=== PATIENT | female | born 1965 | race Caucasian/White ===

== ENCOUNTER 2022-08-15 12:30 | Inpatient (IN) | payer MEDICARE ==
[~2022-08-15] VITALS: Ht 157.5 cm; Wt 97.5 kg
[~2022-08-15 12:30] MED LIST: ACET650S27 RC; ARIP10TA56 MT; ATOR40TA70 MT; FLUO20TA29 PO; FLUO60TA PO; FOLI-43 PO; LACO100T4; LIRA0.6P SQ; METH2.5T PO; ZOLP10TA2 PO; ZOLP5TAB8 PO
[2022-08-16 00:30] VITALS: BP 133/68
[2022-08-16] MEDS ORDERED: DEXTROSE 50% WATER 50ML SYRINGE IV PRN ×2 (01:30)
[2022-08-16] MEDS ORDERED: DIPHENHYDRAMINE 50MG/ML VIAL IV PRN ×2 (01:30→06:34)
[2022-08-16] MEDS ORDERED: ZOLPIDEM TARTRATE 5MG TABLET PO PRN (01:30)
[2022-08-16] MEDS ORDERED: LORAZEPAM 2MG/ML CPJ IV PRN (01:30)
[2022-08-16] MEDS ORDERED: NALOXONE HCL 0.4 MG/ML 1ML VIAL IV PRN (01:45)
[2022-08-16] MEDS ORDERED: ACETAMINOPHEN 325MG SUPP PR PRN (01:45)
[2022-08-16] MEDS ORDERED: ONDANSETRON HCL 4MG/2ML INJ IV PRN (01:45)
[2022-08-16] MEDS ORDERED: NALOXONE HCL 0.4MG/ML VIAL IV PRN (01:45)
[2022-08-16] MEDS: MORPHINE SULFATE 4 MG/ML CPJ (NOT FOR IM USE) IV PRN ×4 (02:54→18:42)
[2022-08-16 04:57] LABS: CLARITY URINE TURBID (CLEAR); COLOR URINE YELLOW (YELLOW); KETONES URINE NEGATIVE (NEGATIVE); LEUKOCYTE ESTERASE URINE 1+ (NEGATIVE); NITRITE URINE NEGATIVE (NEGATIVE); OCCULT BLOOD URINE NEGATIVE (NEGATIVE); PROTEIN URINE NEGATIVE (NEGATIVE); SPECIFIC GRAVITY URINE 1.017 (1.005-1.030)
[2022-08-16] MEDS: BLOOD SUGAR DIAGNOSTIC STRIP TEST SCH ×3 (05:48→21:00)
[2022-08-16] MEDS: SODIUM CHLORIDE 0.9% INJ 3ML FLUSH IVF SCH ×3 (05:52→21:37)
[2022-08-16] MEDS ORDERED: CLONIDINE 0.1MG TABLET PO PRN (06:15)
[2022-08-16] MEDS ORDERED: MAGNESIUM/ALUMINUM HYDROXIDE/SIMETHICONE 30ML UDC PO PRN (06:15)
[2022-08-16] MEDS ORDERED: HYDROCODONE/ACETAMINOPHEN 10/325MG TABLET PO PRN (06:15)
[2022-08-16] MEDS ORDERED: BLOOD SUGAR DIAGNOSTIC STRIP TEST SCH (06:30)
[2022-08-16 06:53] LABS: BASOPHILS % 0.2 % (0.0-2.0); EOSINOPHILS % 2.6 % (0.0-5.0); HEMATOCRIT. 22.6 % (36.0-48.0); HEMOGLOBIN. 7.7 g/dL (12.0-16.0); LYMPHOCYTES % 21.7 % (20.0-50.0); MEAN CORPUSCULAR VOLUME 94.1 fL (81.0-99.0); MEAN PLATELET VOLUME 6.9 fl (7.4-10.4); MONOCYTES % 13.1 % (2.0-8.0); NEUTROPHILS % 62.4 % (40.0-76.0); PLATELET 234 x1000/uL (130-400); RED CELL DISTRIBUTION WIDTH 14.2 % (11.6-14.6)
[2022-08-16 07:17] LABS: CHLORIDE 103 mEq/L (98-107)
[2022-08-16 08:00] VITALS: BP 127/66
[2022-08-16] MEDS: INSULIN LISPRO 100 UNITS/ML SUBCUT SCH ×3 (08:10→21:00)
[2022-08-16] MEDS ORDERED: ACETAMINOPHEN 325MG TABLET PO PRN ×2 (08:30)
[2022-08-16] MEDS ORDERED: ENOXAPARIN 30MG/0.3ML SYR SUBCUT SCH (09:00)
[2022-08-16] MEDS ORDERED: DOCUSATE SODIUM 100MG CAPSULE PO SCH (09:00)
[2022-08-16] MEDS ORDERED: ARIPIPRAZOLE 5MG TABLET PO SCH (09:00)
[2022-08-16] MEDS: ARIPIPRAZOLE 5MG TABLET PO SCH (10:45)
[2022-08-16] MEDS: FLUOXETINE HCL 20MG CAPSULE PO SCH (10:52)
[2022-08-16 12:00] VITALS: BP 125/67
[2022-08-16 16:00] VITALS: BP 122/67
[2022-08-16] MEDS: DOCUSATE SODIUM 100MG CAPSULE PO SCH ×2 (17:00→18:28)
[2022-08-16] MEDS: POLYETHYLENE GLYCOL 3350 (17GM) 1 DOSE PACK PO SCH (18:28)
[2022-08-16 18:46] LABS: TOTAL IRON BINDING CAPACITY 220 ug/dL (250-450)
[2022-08-16 20:15] VITALS: BP 129/63
[2022-08-16] MEDS: ATORVASTATIN CALCIUM 40MG TABLET PO SCH (21:37)
[2022-08-16] MEDS: PANTOPRAZOLE 40MG DR TABLET PO SCH (21:37)
[2022-08-16] MEDS: ZOLPIDEM TARTRATE 5MG TABLET PO PRN (22:22)
[2022-08-16] MEDS: HYDROCODONE/ACETAMINOPHEN 10/325MG TABLET PO PRN (22:38)
[2022-08-17] MEDS: MORPHINE SULFATE 4 MG/ML CPJ (NOT FOR IM USE) IV PRN ×2 (00:18→05:55)
[2022-08-17] MEDS: SODIUM CHLORIDE 0.9% INJ 3ML FLUSH IVF SCH ×3 (05:55→21:33)
[2022-08-17] MEDS: BLOOD SUGAR DIAGNOSTIC STRIP TEST SCH ×4 (05:56→20:51)
[2022-08-17 06:42] LABS: CHLORIDE 106 mEq/L (98-107)
[2022-08-17 06:46] LABS: BASOPHILS % 0.3 % (0.0-2.0); EOSINOPHILS % 2.6 % (0.0-5.0); HEMATOCRIT. 24.4 % (36.0-48.0); HEMOGLOBIN. 8.2 g/dL (12.0-16.0); MEAN CORPUSCULAR HEMOGLOBIN 31.8 pg (28.0-32.0); MEAN CORPUSCULAR VOLUME 94.2 fL (81.0-99.0); MEAN PLATELET VOLUME 7.1 fl (7.4-10.4); MONOCYTES % 13.4 % (2.0-8.0); NEUTROPHILS % 57.7 % (40.0-76.0); PLATELET 283 x1000/uL (130-400); RED BLOOD CELL COUNT 2.59 mill/uL (4.2-5.4); RED CELL DISTRIBUTION WIDTH 13.9 % (11.6-14.6)
[2022-08-17 07:00] LABS: TOTAL IRON BINDING CAPACITY 207 ug/dL (250-450)
[2022-08-17 07:31] LABS: FERRITIN 61 ng/mL (10-291)
[2022-08-17 07:43] LABS: VITAMIN B12 SERUM 1587 pg/mL (211-911)
[2022-08-17 08:00] VITALS: BP 114/60
[2022-08-17] MEDS: INSULIN LISPRO 100 UNITS/ML SUBCUT SCH ×4 (09:00→20:51)
[2022-08-17] MEDS: DOCUSATE SODIUM 100MG CAPSULE PO SCH ×3 (09:00→17:27)
[2022-08-17] MEDS: HYDROCODONE/ACETAMINOPHEN 10/325MG TABLET PO PRN (09:35)
[2022-08-17] MEDS: POLYETHYLENE GLYCOL 3350 (17GM) 1 DOSE PACK PO SCH (09:36)
[2022-08-17] MEDS: ARIPIPRAZOLE 5MG TABLET PO SCH (09:36)
[2022-08-17] MEDS: FLUOXETINE HCL 20MG CAPSULE PO SCH (09:36)
[2022-08-17] MEDS: PANTOPRAZOLE 40MG DR TABLET PO SCH ×2 (09:36→20:35)
[2022-08-17] MEDS ORDERED: BISACODYL 10MG SUPP PR PRN (10:45)
[2022-08-17] MEDS: LACTULOSE 20G/30ML UDC PO SCH ×2 (13:23→17:27)
[2022-08-17] MEDS: FERROUS SULFATE 325MG TABLET PO SCH ×2 (13:23→17:00)
[2022-08-17] MEDS: ASCORBIC ACID 500 MG TABLET PO SCH (13:23)
[2022-08-17] MEDS: METHOCARBAMOL 500MG TABLET PO PRN (16:17)
[2022-08-17] MEDS: OXYCODONE HCL 5MG TABLET PO PRN ×2 (16:18→20:35)
[2022-08-17 20:00] VITALS: BP 117/66
[2022-08-17] MEDS: ATORVASTATIN CALCIUM 40MG TABLET PO SCH (20:35)
[2022-08-17] MEDS: LACOSAMIDE 100 MG TABLET PO SCH (20:47)
[2022-08-17] MEDS: ZOLPIDEM TARTRATE 5MG TABLET PO PRN (22:24)
[2022-08-18] MEDS: OXYCODONE HCL 5MG TABLET PO PRN ×4 (01:51→21:15)
[2022-08-18] MEDS: HYDROCODONE/ACETAMINOPHEN 10/325MG TABLET PO PRN (04:40)
[2022-08-18] MEDS: SODIUM CHLORIDE 0.9% INJ 3ML FLUSH IVF SCH ×3 (06:16→22:00)
[2022-08-18] MEDS: BLOOD SUGAR DIAGNOSTIC STRIP TEST SCH ×4 (06:20→21:15)
[2022-08-18] MEDS: INSULIN LISPRO 100 UNITS/ML SUBCUT SCH ×4 (06:21→21:00)
[2022-08-18 08:00] VITALS: BP 130/56
[2022-08-18] MEDS: ASCORBIC ACID 500 MG TABLET PO SCH (08:47)
[2022-08-18] MEDS: DOCUSATE SODIUM 100MG CAPSULE PO SCH ×2 (08:47→17:42)
[2022-08-18] MEDS: FERROUS SULFATE 325MG TABLET PO SCH ×3 (08:47→17:00)
[2022-08-18] MEDS: LACOSAMIDE 100 MG TABLET PO SCH ×2 (08:47→21:13)
[2022-08-18] MEDS: PANTOPRAZOLE 40MG DR TABLET PO SCH (08:47)
[2022-08-18] MEDS ORDERED: NON FORMULARY PATIENT HOME MED PO SCH (09:00)
[2022-08-18] MEDS: POLYETHYLENE GLYCOL 3350 (17GM) 1 DOSE PACK PO SCH (09:00)
[2022-08-18] MEDS: VICTOZA 18MG/3ML SQ SCH (09:34)
[2022-08-18 20:00] VITALS: BP 125/59
[2022-08-18] MEDS: ARIPIPRAZOLE 5MG TABLET PO SCH (21:11)
[2022-08-18] MEDS: ATORVASTATIN CALCIUM 40MG TABLET PO SCH (21:11)
[2022-08-18] MEDS: FAMOTIDINE 20MG TABLET PO SCH (21:12)
[2022-08-18] MEDS: FLUOXETINE HCL 20MG CAPSULE PO SCH (21:13)
[2022-08-19] MEDS: OXYCODONE HCL 5MG TABLET PO PRN ×3 (02:29→19:36)
[2022-08-19] MEDS: BLOOD SUGAR DIAGNOSTIC STRIP TEST SCH ×4 (05:20→21:22)
[2022-08-19] MEDS: INSULIN LISPRO 100 UNITS/ML SUBCUT SCH ×4 (05:20→19:37)
[2022-08-19] MEDS: SODIUM CHLORIDE 0.9% INJ 3ML FLUSH IVF SCH ×3 (06:00→22:00)
[2022-08-19 08:00] VITALS: BP 123/64
[2022-08-19 08:36] LABS: BASOPHILS % 0.6 % (0.0-2.0); EOSINOPHILS % 3.5 % (0.0-5.0); HEMATOCRIT. 23.9 % (36.0-48.0); LYMPHOCYTES % 23.1 % (20.0-50.0); MEAN CORPUSCULAR HEMOGLOBIN 31.5 pg (28.0-32.0); MEAN CORPUSCULAR VOLUME 93.7 fL (81.0-99.0); MEAN PLATELET VOLUME 6.9 fl (7.4-10.4); MONOCYTES % 10.3 % (2.0-8.0); NEUTROPHILS % 62.5 % (40.0-76.0); PLATELET 326 x1000/uL (130-400); RED BLOOD CELL COUNT 2.55 mill/uL (4.2-5.4); RED CELL DISTRIBUTION WIDTH 14.5 % (11.6-14.6)
[2022-08-19] MEDS: LACOSAMIDE 100 MG TABLET PO SCH ×2 (08:58→19:37)
[2022-08-19] MEDS: POLYETHYLENE GLYCOL 3350 (17GM) 1 DOSE PACK PO SCH (08:58)
[2022-08-19] MEDS: FERROUS SULFATE 325MG TABLET PO SCH ×3 (09:00→17:00)
[2022-08-19] MEDS: ASCORBIC ACID 500 MG TABLET PO SCH (09:00)
[2022-08-19] MEDS: FAMOTIDINE 20MG TABLET PO SCH ×2 (09:00→21:16)
[2022-08-19] MEDS: DOCUSATE SODIUM 100MG CAPSULE PO SCH ×2 (09:00→17:34)
[2022-08-19] MEDS: VICTOZA 18MG/3ML SQ SCH (09:06)
[2022-08-19 09:22] LABS: CHLORIDE 103 mEq/L (98-107)
[2022-08-19] MEDS ORDERED: FERROUS SULFATE 325MG TABLET PO SCH (13:00)
[2022-08-19] MEDS: METHOCARBAMOL 500MG TABLET PO PRN (13:30)
[2022-08-19 17:31] LABS: HEPATITIS B SURFACE ANTIGEN NEGATIVE
[2022-08-19] MEDS: ARIPIPRAZOLE 5MG TABLET PO SCH (19:35)
[2022-08-19] MEDS: FLUOXETINE HCL 20MG CAPSULE PO SCH (19:37)
[2022-08-19] MEDS: ATORVASTATIN CALCIUM 40MG TABLET PO SCH (19:37)
[2022-08-19 20:01] VITALS: BP 122/61
[2022-08-19] MEDS: LACTULOSE 20G/30ML UDC PO SCH (21:17)
[2022-08-19] MEDS: ZOLPIDEM TARTRATE 5MG TABLET PO PRN (21:21)
[2022-08-20] MEDS: OXYCODONE HCL 5MG TABLET PO PRN ×4 (00:37→16:42)
[2022-08-20] MEDS: SODIUM CHLORIDE 0.9% INJ 3ML FLUSH IVF SCH ×3 (06:00→21:12)
[2022-08-20] MEDS: BLOOD SUGAR DIAGNOSTIC STRIP TEST SCH ×4 (06:30→21:11)
[2022-08-20] MEDS: INSULIN LISPRO 100 UNITS/ML SUBCUT SCH ×4 (06:46→21:00)
[2022-08-20 08:00] VITALS: BP 126/87
[2022-08-20] MEDS: DOCUSATE SODIUM 100MG CAPSULE PO SCH ×2 (08:50→16:41)
[2022-08-20] MEDS: FAMOTIDINE 20MG TABLET PO SCH ×2 (08:51→21:10)
[2022-08-20] MEDS: POLYETHYLENE GLYCOL 3350 (17GM) 1 DOSE PACK PO SCH (08:51)
[2022-08-20] MEDS: ASCORBIC ACID 500 MG TABLET PO SCH (08:51)
[2022-08-20] MEDS: FERROUS SULFATE 325MG TABLET PO SCH ×3 (08:51→16:41)
[2022-08-20] MEDS: LACOSAMIDE 100 MG TABLET PO SCH ×2 (08:51→21:11)
[2022-08-20] MEDS: VICTOZA 18MG/3ML SQ SCH (08:52)
[2022-08-20 12:00] VITALS: BP 124/68
[2022-08-20 16:00] VITALS: BP 108/55
[2022-08-20] MEDS: METHOCARBAMOL 500MG TABLET PO PRN (16:17)
[2022-08-20 20:00] VITALS: BP 118/67
[2022-08-20] MEDS: ARIPIPRAZOLE 5MG TABLET PO SCH (21:08)
[2022-08-20] MEDS: LACTULOSE 20G/30ML UDC PO SCH (21:09)
[2022-08-20] MEDS: ATORVASTATIN CALCIUM 40MG TABLET PO SCH (21:09)
[2022-08-20] MEDS: FLUOXETINE HCL 20MG CAPSULE PO SCH (21:10)
[2022-08-20] MEDS: ZOLPIDEM TARTRATE 5MG TABLET PO PRN (22:17)
[2022-08-21] MEDS: OXYCODONE HCL 5MG TABLET PO PRN ×3 (00:43→16:27)
[2022-08-21] MEDS: BLOOD SUGAR DIAGNOSTIC STRIP TEST SCH ×4 (05:29→20:49)
[2022-08-21] MEDS: SODIUM CHLORIDE 0.9% INJ 3ML FLUSH IVF SCH ×3 (06:00→21:47)
[2022-08-21 07:00] LABS: BASOPHILS % 0.8 % (0.0-2.0); EOSINOPHILS % 2.8 % (0.0-5.0); HEMATOCRIT. 25.3 % (36.0-48.0); HEMOGLOBIN. 8.4 g/dL (12.0-16.0); LYMPHOCYTES % 19.6 % (20.0-50.0); MEAN CORPUSCULAR HEMOGLOBIN 31.4 pg (28.0-32.0); MEAN CORPUSCULAR VOLUME 94.6 fL (81.0-99.0); MEAN PLATELET VOLUME 7.6 fl (7.4-10.4); MONOCYTES % 8.6 % (2.0-8.0); NEUTROPHILS % 68.2 % (40.0-76.0); PLATELET 324 x1000/uL (130-400); RED BLOOD CELL COUNT 2.68 mill/uL (4.2-5.4); RED CELL DISTRIBUTION WIDTH 15.1 % (11.6-14.6)
[2022-08-21 08:00] VITALS: BP 122/67
[2022-08-21 08:40] LABS: CHLORIDE 99 mEq/L (98-107)
[2022-08-21] MEDS: INSULIN LISPRO 100 UNITS/ML SUBCUT SCH ×4 (09:00→20:50)
[2022-08-21] MEDS: FAMOTIDINE 20MG TABLET PO SCH ×2 (09:38→20:48)
[2022-08-21] MEDS: LACOSAMIDE 100 MG TABLET PO SCH ×2 (09:38→21:00)
[2022-08-21] MEDS: FERROUS SULFATE 325MG TABLET PO SCH ×3 (09:38→17:00)
[2022-08-21] MEDS: DOCUSATE SODIUM 100MG CAPSULE PO SCH ×2 (09:39→17:58)
[2022-08-21] MEDS: ASCORBIC ACID 500 MG TABLET PO SCH (09:39)
[2022-08-21] MEDS: VICTOZA 18MG/3ML SQ SCH (09:40)
[2022-08-21] MEDS: POLYETHYLENE GLYCOL 3350 (17GM) 1 DOSE PACK PO SCH (09:40)
[2022-08-21] MEDS ORDERED: NA PHOS,M-B/NA PHOS,DI-BA ENEMA 118ML PR NR (15:00)
[2022-08-21 20:26] VITALS: BP 127/50
[2022-08-21] MEDS: ATORVASTATIN CALCIUM 40MG TABLET PO SCH (20:48)
[2022-08-21] MEDS: ARIPIPRAZOLE 5MG TABLET PO SCH (20:48)
[2022-08-21] MEDS: FLUOXETINE HCL 20MG CAPSULE PO SCH (20:49)
[2022-08-21] MEDS: HYDROCODONE/ACETAMINOPHEN 10/325MG TABLET PO PRN (20:49)
[2022-08-21] MEDS: LACTULOSE 20G/30ML UDC PO SCH (21:00)
[2022-08-21] MEDS: ZOLPIDEM TARTRATE 5MG TABLET PO PRN (21:48)
[2022-08-22] MEDS: HYDROCODONE/ACETAMINOPHEN 10/325MG TABLET PO PRN ×2 (02:47→02:48)
[2022-08-22] MEDS: OXYCODONE HCL 5MG TABLET PO PRN ×5 (02:54→20:35)
[2022-08-22] MEDS: BLOOD SUGAR DIAGNOSTIC STRIP TEST SCH ×4 (06:30→20:41)
[2022-08-22] MEDS: SODIUM CHLORIDE 0.9% INJ 3ML FLUSH IVF SCH ×3 (06:30→21:30)
[2022-08-22 08:00] VITALS: BP 117/63
[2022-08-22] MEDS: VICTOZA 18MG/3ML SQ SCH (08:21)
[2022-08-22] MEDS: FERROUS SULFATE 325MG TABLET PO SCH ×3 (08:22→16:36)
[2022-08-22] MEDS: POLYETHYLENE GLYCOL 3350 (17GM) 1 DOSE PACK PO SCH (08:22)
[2022-08-22] MEDS: ASCORBIC ACID 500 MG TABLET PO SCH (08:23)
[2022-08-22] MEDS: DOCUSATE SODIUM 100MG CAPSULE PO SCH ×2 (08:23→16:32)
[2022-08-22] MEDS: LACOSAMIDE 100 MG TABLET PO SCH ×2 (08:23→20:36)
[2022-08-22] MEDS: FAMOTIDINE 20MG TABLET PO SCH ×2 (08:23→20:35)
[2022-08-22] MEDS: INSULIN LISPRO 100 UNITS/ML SUBCUT SCH ×4 (08:41→20:41)
[2022-08-22] MEDS ORDERED: IRON SUCROSE COMPLEX 100 MG/5 ML ML IV SCH (17:00)
[2022-08-22 20:00] VITALS: BP 121/51
[2022-08-22] MEDS: ARIPIPRAZOLE 5MG TABLET PO SCH (20:35)
[2022-08-22] MEDS: ATORVASTATIN CALCIUM 40MG TABLET PO SCH (20:36)
[2022-08-22] MEDS: FLUOXETINE HCL 20MG CAPSULE PO SCH (20:36)
[2022-08-22] MEDS: LACTULOSE 20G/30ML UDC PO SCH (20:36)
[2022-08-22] MEDS: ZOLPIDEM TARTRATE 5MG TABLET PO PRN (22:31)
[2022-08-23] MEDS: IRON SUCROSE COMPLEX 100 MG/5 ML ML IV SCH (00:44)
[2022-08-23] MEDS: OXYCODONE HCL 5MG TABLET PO PRN ×5 (01:18→23:56)
[2022-08-23] MEDS: HYDROCODONE/ACETAMINOPHEN 10/325MG TABLET PO PRN (04:58)
[2022-08-23] MEDS: SODIUM CHLORIDE 0.9% INJ 3ML FLUSH IVF SCH ×3 (06:15→22:00)
[2022-08-23] MEDS: INSULIN LISPRO 100 UNITS/ML SUBCUT SCH ×4 (06:15→20:36)
[2022-08-23] MEDS: BLOOD SUGAR DIAGNOSTIC STRIP TEST SCH ×4 (06:15→20:36)
[2022-08-23 07:16] LABS: BASOPHILS % 0.6 % (0.0-2.0); EOSINOPHILS % 2.6 % (0.0-5.0); HEMOGLOBIN. 8.5 g/dL (12.0-16.0); LYMPHOCYTES % 20.6 % (20.0-50.0); MEAN CORPUSCULAR HEMOGLOBIN 31.3 pg (28.0-32.0); MEAN CORPUSCULAR VOLUME 92.8 fL (81.0-99.0); MEAN PLATELET VOLUME 6.9 fl (7.4-10.4); MONOCYTES % 10.2 % (2.0-8.0); PLATELET 404 x1000/uL (130-400); RED CELL DISTRIBUTION WIDTH 15.2 % (11.6-14.6)
[2022-08-23 08:00] VITALS: BP 101/56
[2022-08-23] MEDS: LACOSAMIDE 100 MG TABLET PO SCH ×2 (08:24→20:38)
[2022-08-23] MEDS: ASCORBIC ACID 500 MG TABLET PO SCH (08:24)
[2022-08-23] MEDS: FAMOTIDINE 20MG TABLET PO SCH ×2 (08:24→20:37)
[2022-08-23] MEDS: FERROUS SULFATE 325MG TABLET PO SCH ×3 (08:24→16:52)
[2022-08-23 08:53] LABS: AMYLASE 23 IU/L (25-115); CHLORIDE 106 mEq/L (98-107); GAMMA GLUTAMYL TRANSPEPTIDASE 41 IU/L (7-32)
[2022-08-23] MEDS: DOCUSATE SODIUM 100MG CAPSULE PO SCH ×2 (09:00→16:52)
[2022-08-23] MEDS: POLYETHYLENE GLYCOL 3350 (17GM) 1 DOSE PACK PO SCH (09:00)
[2022-08-23] MEDS: VICTOZA 18MG/3ML SQ SCH (09:00)
[2022-08-23 09:22] LABS: FOLIC ACID (FOLATE) SERUM 14.1 ng/mL (>5.38)
[2022-08-23] MEDS ORDERED: POTASSIUM CHLORIDE 10MEQ TABLET SR PO NR (10:30)
[2022-08-23] MEDS: METHOCARBAMOL 500MG TABLET PO PRN (15:16)
[2022-08-23 19:46] VITALS: BP 120/64
[2022-08-23] MEDS: ATORVASTATIN CALCIUM 40MG TABLET PO SCH (20:37)
[2022-08-23] MEDS: ARIPIPRAZOLE 5MG TABLET PO SCH (20:37)
[2022-08-23] MEDS: LACTULOSE 20G/30ML UDC PO SCH (20:40)
[2022-08-23] MEDS: FLUOXETINE HCL 20MG CAPSULE PO SCH (20:43)
[2022-08-24] MEDS: IRON SUCROSE COMPLEX 100 MG/5 ML ML IV SCH ×2 (00:45→23:53)
[2022-08-24] MEDS: OXYCODONE HCL 5MG TABLET PO PRN ×5 (05:33→22:54)
[2022-08-24] MEDS: INSULIN LISPRO 100 UNITS/ML SUBCUT SCH ×4 (05:51→21:00)
[2022-08-24] MEDS: BLOOD SUGAR DIAGNOSTIC STRIP TEST SCH ×4 (05:51→21:57)
[2022-08-24 06:24] LABS: BASOPHILS % 0.5 % (0.0-2.0); EOSINOPHILS % 2.5 % (0.0-5.0); HEMATOCRIT. 26.8 % (36.0-48.0); HEMOGLOBIN. 8.9 g/dL (12.0-16.0); LYMPHOCYTES % 17.7 % (20.0-50.0); MEAN CORPUSCULAR VOLUME 93.5 fL (81.0-99.0); MEAN PLATELET VOLUME 6.8 fl (7.4-10.4); MONOCYTES % 8.9 % (2.0-8.0); NEUTROPHILS % 70.4 % (40.0-76.0); PLATELET 419 x1000/uL (130-400); RED BLOOD CELL COUNT 2.87 mill/uL (4.2-5.4); RED CELL DISTRIBUTION WIDTH 15.2 % (11.6-14.6)
[2022-08-24 08:00] VITALS: BP 114/51
[2022-08-24 08:39] LABS: CHLORIDE 106 mEq/L (98-107)
[2022-08-24] MEDS: FAMOTIDINE 20MG TABLET PO SCH ×2 (08:53→20:35)
[2022-08-24] MEDS: DOCUSATE SODIUM 100MG CAPSULE PO SCH ×2 (08:53→17:51)
[2022-08-24] MEDS: LACOSAMIDE 100 MG TABLET PO SCH ×2 (08:53→20:35)
[2022-08-24] MEDS: ASCORBIC ACID 500 MG TABLET PO SCH (08:53)
[2022-08-24] MEDS: VICTOZA 18MG/3ML SQ SCH (08:55)
[2022-08-24] MEDS: POLYETHYLENE GLYCOL 3350 (17GM) 1 DOSE PACK PO SCH (09:00)
[2022-08-24] MEDS ORDERED: POTASSIUM CHLORIDE 20MEQ TABLET SR PO NR (09:00)
[2022-08-24] MEDS: SODIUM CHLORIDE 0.9% INJ 3ML FLUSH IVF SCH ×2 (14:00→22:00)
[2022-08-24 20:10] VITALS: BP 133/46
[2022-08-24] MEDS: FLUOXETINE HCL 20MG CAPSULE PO SCH (20:34)
[2022-08-24] MEDS: ATORVASTATIN CALCIUM 40MG TABLET PO SCH (20:35)
[2022-08-24] MEDS: LACTULOSE 20G/30ML UDC PO SCH (20:35)
[2022-08-24] MEDS: ARIPIPRAZOLE 5MG TABLET PO SCH (20:35)
[2022-08-25] MEDS: ZOLPIDEM TARTRATE 5MG TABLET PO PRN ×2 (00:09→22:29)
[2022-08-25 04:07] LABS: 25-HYDROXY VITAMIN D3 30 ng/mL (.)
[2022-08-25] MEDS: INSULIN LISPRO 100 UNITS/ML SUBCUT SCH ×4 (06:08→20:17)
[2022-08-25] MEDS: BLOOD SUGAR DIAGNOSTIC STRIP TEST SCH ×4 (06:08→20:17)
[2022-08-25] MEDS: OXYCODONE HCL 5MG TABLET PO PRN ×4 (06:10→20:25)
[2022-08-25] MEDS: SODIUM CHLORIDE 0.9% INJ 3ML FLUSH IVF SCH ×2 (06:13→21:45)
[2022-08-25 07:14] LABS: BASOPHILS % 0.5 % (0.0-2.0); EOSINOPHILS % 2.9 % (0.0-5.0); LYMPHOCYTES % 21.7 % (20.0-50.0); MEAN CORPUSCULAR HEMOGLOBIN 30.9 pg (28.0-32.0); MEAN PLATELET VOLUME 6.8 fl (7.4-10.4); MONOCYTES % 9.1 % (2.0-8.0); NEUTROPHILS % 65.8 % (40.0-76.0); PLATELET 436 x1000/uL (130-400); RED CELL DISTRIBUTION WIDTH 15.5 % (11.6-14.6)
[2022-08-25 08:00] VITALS: BP 95/42
[2022-08-25] MEDS: ASCORBIC ACID 500 MG TABLET PO SCH (08:16)
[2022-08-25] MEDS: LACOSAMIDE 100 MG TABLET PO SCH ×2 (08:16→20:17)
[2022-08-25] MEDS: DOCUSATE SODIUM 100MG CAPSULE PO SCH ×2 (08:16→16:09)
[2022-08-25] MEDS: FAMOTIDINE 20MG TABLET PO SCH ×2 (08:16→20:16)
[2022-08-25] MEDS: VICTOZA 18MG/3ML SQ SCH (08:20)
[2022-08-25] MEDS: POLYETHYLENE GLYCOL 3350 (17GM) 1 DOSE PACK PO SCH (09:00)
[2022-08-25 17:04] LABS: CHLORIDE 105 mEq/L (98-107)
[2022-08-25 20:00] VITALS: BP 120/41
[2022-08-25] MEDS: ATORVASTATIN CALCIUM 40MG TABLET PO SCH (20:16)
[2022-08-25] MEDS: LACTULOSE 20G/30ML UDC PO SCH (20:16)
[2022-08-25] MEDS: ARIPIPRAZOLE 5MG TABLET PO SCH (20:16)
[2022-08-25] MEDS: FLUOXETINE HCL 20MG CAPSULE PO SCH (20:17)
[2022-08-26] MEDS: INSULIN LISPRO 100 UNITS/ML SUBCUT SCH ×4 (05:26→20:26)
[2022-08-26] MEDS: BLOOD SUGAR DIAGNOSTIC STRIP TEST SCH ×4 (05:26→20:26)
[2022-08-26] MEDS: OXYCODONE HCL 5MG TABLET PO PRN ×4 (05:28→20:52)
[2022-08-26] MEDS: SODIUM CHLORIDE 0.9% INJ 3ML FLUSH IVF SCH ×3 (05:30→20:29)
[2022-08-26 08:00] VITALS: BP 120/69
[2022-08-26 08:05] LABS: BASOPHILS % 0.4 % (0.0-2.0); HEMATOCRIT. 27.3 % (36.0-48.0); HEMOGLOBIN. 8.8 g/dL (12.0-16.0); LYMPHOCYTES % 23.7 % (20.0-50.0); MEAN CORPUSCULAR HEMOGLOBIN 30.2 pg (28.0-32.0); MEAN CORPUSCULAR VOLUME 93.2 fL (81.0-99.0); MONOCYTES % 8.3 % (2.0-8.0); NEUTROPHILS % 64.6 % (40.0-76.0); PLATELET 427 x1000/uL (130-400); RED BLOOD CELL COUNT 2.92 mill/uL (4.2-5.4); RED CELL DISTRIBUTION WIDTH 15.9 % (11.6-14.6)
[2022-08-26 08:23] LABS: CHLORIDE 106 mEq/L (98-107)
[2022-08-26] MEDS: ASCORBIC ACID 500 MG TABLET PO SCH (09:18)
[2022-08-26] MEDS: FAMOTIDINE 20MG TABLET PO SCH ×2 (09:18→20:26)
[2022-08-26] MEDS: LACOSAMIDE 100 MG TABLET PO SCH ×2 (09:18→20:26)
[2022-08-26] MEDS: DOCUSATE SODIUM 100MG CAPSULE PO SCH ×2 (09:18→16:48)
[2022-08-26] MEDS: POLYETHYLENE GLYCOL 3350 (17GM) 1 DOSE PACK PO SCH (09:18)
[2022-08-26] MEDS: VICTOZA 18MG/3ML SQ SCH (09:24)
[2022-08-26 20:00] VITALS: BP 107/65
[2022-08-26] MEDS: LACTULOSE 20G/30ML UDC PO SCH (20:25)
[2022-08-26] MEDS: ARIPIPRAZOLE 5MG TABLET PO SCH (20:25)
[2022-08-26] MEDS: ATORVASTATIN CALCIUM 40MG TABLET PO SCH (20:25)
[2022-08-26] MEDS: FLUOXETINE HCL 20MG CAPSULE PO SCH (20:26)
[2022-08-26] MEDS: ZOLPIDEM TARTRATE 5MG TABLET PO PRN (23:05)
[2022-08-27] MEDS: OXYCODONE HCL 5MG TABLET PO PRN ×4 (02:45→17:43)
[2022-08-27] MEDS: INSULIN LISPRO 100 UNITS/ML SUBCUT SCH ×4 (05:41→20:23)
[2022-08-27] MEDS: BLOOD SUGAR DIAGNOSTIC STRIP TEST SCH ×4 (05:41→20:22)
[2022-08-27] MEDS: SODIUM CHLORIDE 0.9% INJ 3ML FLUSH IVF SCH ×3 (06:00→22:00)
[2022-08-27 08:00] VITALS: BP 131/81
[2022-08-27] MEDS: LACOSAMIDE 100 MG TABLET PO SCH ×2 (08:54→20:15)
[2022-08-27] MEDS: ASCORBIC ACID 500 MG TABLET PO SCH (08:54)
[2022-08-27] MEDS: FAMOTIDINE 20MG TABLET PO SCH ×2 (08:54→20:15)
[2022-08-27] MEDS: POLYETHYLENE GLYCOL 3350 (17GM) 1 DOSE PACK PO SCH (08:54)
[2022-08-27] MEDS: DOCUSATE SODIUM 100MG CAPSULE PO SCH ×2 (08:54→17:15)
[2022-08-27] MEDS: VICTOZA 18MG/3ML SQ SCH (08:55)
[2022-08-27] MEDS ORDERED: ERGOCALCIFEROL 50000UNITS CAPSULE PO SCH (14:15)
[2022-08-27 20:00] VITALS: BP 108/52
[2022-08-27] MEDS: ARIPIPRAZOLE 5MG TABLET PO SCH (20:15)
[2022-08-27] MEDS: FLUOXETINE HCL 20MG CAPSULE PO SCH (20:15)
[2022-08-27] MEDS: ATORVASTATIN CALCIUM 40MG TABLET PO SCH (20:15)
[2022-08-27] MEDS: LACTULOSE 20G/30ML UDC PO SCH (20:16)
[2022-08-28] MEDS: OXYCODONE HCL 5MG TABLET PO PRN ×5 (04:37→23:42)
[2022-08-28] MEDS: SODIUM CHLORIDE 0.9% INJ 3ML FLUSH IVF SCH ×3 (06:01→21:14)
[2022-08-28] MEDS: BLOOD SUGAR DIAGNOSTIC STRIP TEST SCH ×4 (06:01→21:00)
[2022-08-28 08:00] VITALS: BP 108/50
[2022-08-28] MEDS: VICTOZA 18MG/3ML SQ SCH (08:39)
[2022-08-28] MEDS: DOCUSATE SODIUM 100MG CAPSULE PO SCH ×2 (08:41→17:00)
[2022-08-28] MEDS: FAMOTIDINE 20MG TABLET PO SCH ×2 (08:41→21:09)
[2022-08-28] MEDS: ASCORBIC ACID 500 MG TABLET PO SCH (08:41)
[2022-08-28] MEDS: LACOSAMIDE 100 MG TABLET PO SCH ×2 (08:41→21:09)
[2022-08-28] MEDS: POLYETHYLENE GLYCOL 3350 (17GM) 1 DOSE PACK PO SCH (09:00)
[2022-08-28] MEDS: INSULIN LISPRO 100 UNITS/ML SUBCUT SCH ×4 (09:00→21:00)
[2022-08-28] MEDS ORDERED: NALOXONE HCL 0.4MG/ML VIAL IV PRN (11:15)
[2022-08-28] MEDS: FLUCONAZOLE 100MG TABLET PO SCH (14:41)
[2022-08-28] MEDS: LACTULOSE 20G/30ML UDC PO SCH (21:00)
[2022-08-28] MEDS: ARIPIPRAZOLE 5MG TABLET PO SCH (21:09)
[2022-08-28] MEDS: ATORVASTATIN CALCIUM 40MG TABLET PO SCH (21:10)
[2022-08-28] MEDS: FLUOXETINE HCL 20MG CAPSULE PO SCH (21:10)
[2022-08-28] MEDS: ZOLPIDEM TARTRATE 5MG TABLET PO PRN (21:10)
[2022-08-29] MEDS: SODIUM CHLORIDE 0.9% INJ 3ML FLUSH IVF SCH ×3 (05:10→22:00)
[2022-08-29] MEDS: OXYCODONE HCL 5MG TABLET PO PRN ×4 (05:36→20:49)
[2022-08-29] MEDS: BLOOD SUGAR DIAGNOSTIC STRIP TEST SCH ×4 (05:39→20:59)
[2022-08-29 07:24] LABS: BASOPHILS % 0.7 % (0.0-2.0); HEMOGLOBIN. 10.4 g/dL (12.0-16.0); MEAN CORPUSCULAR VOLUME 95.1 fL (81.0-99.0); MEAN PLATELET VOLUME 7.2 fl (7.4-10.4); MONOCYTES % 10.9 % (2.0-8.0); NEUTROPHILS % 53.4 % (40.0-76.0); PLATELET 393 x1000/uL (130-400); RED BLOOD CELL COUNT 3.37 mill/uL (4.2-5.4); RED CELL DISTRIBUTION WIDTH 16.3 % (11.6-14.6)
[2022-08-29 08:00] VITALS: BP 98/61
[2022-08-29 08:15] LABS: CHLORIDE 102 mEq/L (98-107)
[2022-08-29] MEDS: INSULIN LISPRO 100 UNITS/ML SUBCUT SCH ×4 (08:31→20:59)
[2022-08-29] MEDS: DOCUSATE SODIUM 100MG CAPSULE PO SCH ×2 (08:32→16:01)
[2022-08-29] MEDS: FAMOTIDINE 20MG TABLET PO SCH ×2 (08:33→20:50)
[2022-08-29] MEDS: ASCORBIC ACID 500 MG TABLET PO SCH (08:33)
[2022-08-29] MEDS: FLUCONAZOLE 100MG TABLET PO SCH (08:33)
[2022-08-29] MEDS: LACOSAMIDE 100 MG TABLET PO SCH ×2 (08:33→20:50)
[2022-08-29] MEDS: POLYETHYLENE GLYCOL 3350 (17GM) 1 DOSE PACK PO SCH (08:35)
[2022-08-29] MEDS: VICTOZA 18MG/3ML SQ SCH ×2 (08:38→14:06)
[2022-08-29 19:47] VITALS: BP 123/59
[2022-08-29] MEDS: ARIPIPRAZOLE 5MG TABLET PO SCH (20:49)
[2022-08-29] MEDS: FLUOXETINE HCL 20MG CAPSULE PO SCH (20:50)
[2022-08-29] MEDS: ATORVASTATIN CALCIUM 40MG TABLET PO SCH (20:50)
[2022-08-29] MEDS: LACTULOSE 20G/30ML UDC PO SCH (20:58)
[2022-08-30] MEDS: OXYCODONE HCL 5MG TABLET PO PRN ×5 (00:54→20:36)
[2022-08-30] MEDS: SODIUM CHLORIDE 0.9% INJ 3ML FLUSH IVF SCH ×3 (06:00→22:00)
[2022-08-30] MEDS: BLOOD SUGAR DIAGNOSTIC STRIP TEST SCH ×4 (06:17→20:37)
[2022-08-30 07:54] LABS: BASOPHILS % 0.8 % (0.0-2.0); HEMATOCRIT. 30.6 % (36.0-48.0); HEMOGLOBIN. 10.1 g/dL (12.0-16.0); LYMPHOCYTES % 32.1 % (20.0-50.0); MEAN CORPUSCULAR HEMOGLOBIN 30.6 pg (28.0-32.0); MEAN CORPUSCULAR VOLUME 92.7 fL (81.0-99.0); MEAN PLATELET VOLUME 7.1 fl (7.4-10.4); MONOCYTES % 9.9 % (2.0-8.0); NEUTROPHILS % 53.2 % (40.0-76.0); PLATELET 400 x1000/uL (130-400); RED CELL DISTRIBUTION WIDTH 16.2 % (11.6-14.6)
[2022-08-30 08:00] VITALS: BP 131/60
[2022-08-30] MEDS: INSULIN LISPRO 100 UNITS/ML SUBCUT SCH ×4 (09:00→20:38)
[2022-08-30] MEDS: POLYETHYLENE GLYCOL 3350 (17GM) 1 DOSE PACK PO SCH (09:00)
[2022-08-30] MEDS: DOCUSATE SODIUM 100MG CAPSULE PO SCH ×2 (09:16→17:22)
[2022-08-30] MEDS: FAMOTIDINE 20MG TABLET PO SCH ×2 (09:16→20:31)
[2022-08-30] MEDS: ASCORBIC ACID 500 MG TABLET PO SCH (09:16)
[2022-08-30] MEDS: LACOSAMIDE 100 MG TABLET PO SCH ×2 (09:16→20:32)
[2022-08-30] MEDS: FLUCONAZOLE 100MG TABLET PO SCH (09:17)
[2022-08-30] MEDS: VICTOZA 18MG/3ML SQ SCH (09:17)
[2022-08-30 20:10] VITALS: BP 96/64
[2022-08-30] MEDS: ARIPIPRAZOLE 5MG TABLET PO SCH (20:32)
[2022-08-30] MEDS: FLUOXETINE HCL 20MG CAPSULE PO SCH (20:33)
[2022-08-30] MEDS: ATORVASTATIN CALCIUM 40MG TABLET PO SCH (20:33)
[2022-08-30] MEDS: LACTULOSE 20G/30ML UDC PO SCH (20:37)
[2022-08-31] MEDS: OXYCODONE HCL 5MG TABLET PO PRN ×3 (00:41→11:25)
[2022-08-31] MEDS: SODIUM CHLORIDE 0.9% INJ 3ML FLUSH IVF SCH (06:00)
[2022-08-31] MEDS: BLOOD SUGAR DIAGNOSTIC STRIP TEST SCH ×2 (06:07→11:15)
[2022-08-31 06:15] LABS: CHLORIDE 103 mEq/L (98-107)
[2022-08-31 06:59] LABS: EOSINOPHILS % 3.6 % (0.0-5.0); HEMATOCRIT. 32.2 % (36.0-48.0); HEMOGLOBIN. 10.6 g/dL (12.0-16.0); LYMPHOCYTES % 30.8 % (20.0-50.0); MEAN CORPUSCULAR HEMOGLOBIN 30.8 pg (28.0-32.0); MEAN CORPUSCULAR VOLUME 94.1 fL (81.0-99.0); MEAN PLATELET VOLUME 7.3 fl (7.4-10.4); MONOCYTES % 11.3 % (2.0-8.0); NEUTROPHILS % 53.3 % (40.0-76.0); PLATELET 348 x1000/uL (130-400); RED BLOOD CELL COUNT 3.43 mill/uL (4.2-5.4); RED CELL DISTRIBUTION WIDTH 16.2 % (11.6-14.6)
[2022-08-31 08:00] VITALS: BP 110/52
[2022-08-31] MEDS: INSULIN LISPRO 100 UNITS/ML SUBCUT SCH (09:00)
[2022-08-31] MEDS: FAMOTIDINE 20MG TABLET PO SCH (09:03)
[2022-08-31] MEDS: POLYETHYLENE GLYCOL 3350 (17GM) 1 DOSE PACK PO SCH (09:03)
[2022-08-31] MEDS: ASCORBIC ACID 500 MG TABLET PO SCH (09:03)
[2022-08-31] MEDS: DOCUSATE SODIUM 100MG CAPSULE PO SCH (09:03)
[2022-08-31] MEDS: FLUCONAZOLE 100MG TABLET PO SCH (09:04)
[2022-08-31] MEDS: LACOSAMIDE 100 MG TABLET PO SCH (09:04)
[2022-08-31] MEDS ORDERED: FERR325T6 PO (09:56)
[2022-08-31] MEDS: VICTOZA 18MG/3ML SQ SCH (11:13)
[2022-08-31 12:09] VITALS: BP 110/52
[2022-08-31 19:28] LABS: CHLORIDE 101 mEq/L (98-107)
== END 2022-08-31 14:00 | disposition home health service (06) | DRG 563 ==
LOC: UNDOADMIN 12:30
PROVIDERS: ADMIT Physical Medicine & Rehabilitation Spinal Cord Injury Medicine; ATTEND Internal Medicine
DX: S82.142A Displaced bicondylar fracture of left tibia, initial encounter for closed fracture (principal); S52.692A Other fracture of lower end of left ulna, initial encounter for closed fracture; F33.9 Major depressive disorder, recurrent, unspecified; S52.572A Other intraarticular fracture of lower end of left radius, initial encounter for closed fracture; F33.1 Major depressive disorder, recurrent, moderate; E44.1 Mild protein-calorie malnutrition; E11.9 Type 2 diabetes mellitus without complications; L40.50 Arthropathic psoriasis, unspecified; D64.9 Anemia, unspecified; R26.9 Unspecified abnormalities of gait and mobility; S83.282A Other tear of lateral meniscus, current injury, left knee, initial encounter; G40.909 Epilepsy, unspecified, not intractable, without status epilepticus; B37.31 Acute candidiasis of vulva and vagina; E55.9 Vitamin D deficiency, unspecified; E87.6 Hypokalemia; D50.9 Iron deficiency anemia, unspecified; F41.9 Anxiety disorder, unspecified; R94.6 Abnormal results of thyroid function studies; R79.89 Other specified abnormal findings of blood chemistry; K59.00 Constipation, unspecified; R74.01 Elevation of levels of liver transaminase levels; R19.5 Other fecal abnormalities; Z20.822 Contact with and (suspected) exposure to COVID-19; S82.832A Other fracture of upper and lower end of left fibula, initial encounter for closed fracture; W01.0XXA Fall on same level from slipping, tripping and stumbling without subsequent striking against object, initial encounter; Z82.49 Family history of ischemic heart disease and other diseases of the circulatory system; Z56.0 Unemployment, unspecified; Z90.49 Acquired absence of other specified parts of digestive tract; Y93.89 Activity, other specified; Y92.098 Other place in other non-institutional residence as the place of occurrence of the external cause; Y99.8 Other external cause status; Z79.84 Long term (current) use of oral hypoglycemic drugs; Z91.040 Latex allergy status; Z68.39 Body mass index [BMI] 39.0-39.9, adult
CPT/HCPCS: 36415; 72040; 73100; 73590; 76700; 80048; 80053; 80076; 80339; 81003; 82150; 82270; 82306; 82607; 82728; 82746; 82962; 82977; 83036; 83540; 83550; 84443; 85025; 85044; 86705; 86709; 86803; 87340; 87426; 92523; 92610; 93970; 97110; 97116; 97162; 97166; 97530; 97535; 97542; A6261; C1893; J1650; J1815; J2270